=== PATIENT | male | born 1955 | race Caucasian/White ===

== ENCOUNTER 2023-02-27 15:30 | Inpatient (IN) | payer MEDICARE ==
[~2023-02-27] VITALS: Ht 175.3 cm; Wt 89.0 kg
[2023-02-27 17:02] LABS: BASOPHILS # (AUTO) 0.1 X10'3 (0-0.2); BASOPHILS % (AUTO) 1.9 % (0-1); EOSINOPHILS # (AUTO) 0.1 X10'3 (0-0.9); EOSINOPHILS % (AUTO) 2.1 % (0-6); HEMATOCRIT 35.4 % (42.0-52.0); HEMOGLOBIN 11.6 g/dl (14.0-17.9); LYMPHOCYTES # (AUTO) 0.8 X10'3 (1.1-4.8); LYMPHOCYTES % (AUTO) 13.2 % (21-51); MEAN CORPUSCULAR HEMOGLOBIN 30.7 PG (27.0-31.0); MEAN CORPUSCULAR HGB CONC 32.8 g/dL (33.0-36.5); MEAN CORPUSCULAR VOLUME 93.6 FL (78-98); MEAN PLATELET VOLUME 7.8 FL (7.4-10.4); MONOCYTES # (AUTO) 1.1 X10'3 (0-0.9); NEUTROPHILS % (AUTO) 64.8 % (42-75); PLATELET COUNT 301 X10'3 (140-440); RED BLOOD COUNT 3.78 X10'6 (4.70-6.10); RED CELL DISTRIBUTION WIDTH 15.9 % (11.5-14.5); WHITE BLOOD COUNT 6.2 X10'3 (4.5-11.0)
[2023-02-27 17:14] LABS: PROTHROMBIN TIME 10.5 SECONDS (9.0-12.0)
[2023-02-27 17:17] LABS: ALANINE AMINOTRANSFERASE 10 U/L (12-78); ALBUMIN 2.5 G/DL (3.4-5.0); ALBUMIN/GLOBULIN RATIO 0.7 (1.1-1.5); ALKALINE PHOSPHATASE 56 IU/L (46-116); ANION GAP 5 (8-16); ASPARTATE AMINO TRANSFERASE 15 U/L (10-37); BILIRUBIN,TOTAL 0.5 MG/DL (0.1-1.0); BLOOD UREA NITROGEN 29 MG/DL (7-18); BUN/CREATININE RATIO 4.8 (10.0-20.0); CALCIUM 8.7 MG/DL (8.5-10.1); CHLORIDE 95 MMOL/L (99-107); GLUCOSE 108 MG/DL (70-104); POTASSIUM 5.7 MMOL/L (3.5-5.1); SODIUM 127 MMOL/L (135-145); TOTAL CARBON DIOXIDE 27.1 MMOL/L (24-32); TOTAL PROTEIN 6.3 G/DL (6.4-8.2); eCRCL 12 ML/MIN; eGFR 9 ML/MIN
[2023-02-27 17:25] LABS: PRO BRAIN NATRIURETIC PEPTIDE 15329 PG/ML (0-125)
[2023-02-27] MEDS ORDERED: morphine 4 MG/ML inj SYRINge IV ONE (19:25)
[2023-02-27] MEDS ORDERED: HYDR-4069 PO (21:01)
[2023-02-27] MEDS ORDERED: BISM262O50 (21:01)
[2023-02-27] MEDS ORDERED: METO5TAB85 PO (21:01)
[2023-02-27] MEDS ORDERED: AMLO2.5T2 PO (21:01)
[2023-02-27] MEDS ORDERED: MEGE40TA5 PO (21:01)
[2023-02-27] MEDS ORDERED: OXYC-145 PO (21:01)
[2023-02-27] MEDS ORDERED: SERT25TA PO (21:01)
[2023-02-27] MEDS ORDERED: ASPI-1071 PO (21:01)
[2023-02-27] MEDS ORDERED: B,C/1TAB (21:01)
[2023-02-27] MEDS ORDERED: ATOR40TA PO (21:01)
[2023-02-27] MEDS ORDERED: CALC500T11 PO (21:01)
[2023-02-27] MEDS ORDERED: SYN0.088T PO (21:01)
[2023-02-27] MEDS ORDERED: LOSA-415 PO (21:01)
[2023-02-27] MEDS ORDERED: METO50TA7 PO (21:01)
[2023-02-27] MEDS ORDERED: ALB0.5UD IH (21:01)
[2023-02-27] MEDS ORDERED: SEVE800T8 PO (21:01)
[2023-02-28] MEDS ORDERED: acetaminophen 325mg tablet PO PRN ×2 (02:25)
[2023-02-28] MEDS ORDERED: magnesium hydroxide 30ml (MOM) UD suspension PO PRN (02:25)
[2023-02-28] MEDS ORDERED: normal saline 1000ml 1,000 ML IV SCH (02:25)
[2023-02-28] MEDS ORDERED: acetaminophen 650mg rectal suppository RC PRN (02:25)
[2023-02-28] MEDS ORDERED: mag hydrox/Alum hydrox/simeth 30ml oral suspension PO PRN (02:25)
[2023-02-28] MEDS ORDERED: HYDROcodone/acetaminophen 5mg/325mg tablet PO PRN (02:25)
[2023-02-28] MEDS ORDERED: ondansetron 4mg rapidly disintigrating tab PO PRN (02:25)
[2023-02-28] MEDS ORDERED: morphine 2 MG/ML inj. syringe IV PRN (02:25)
[2023-02-28] MEDS ORDERED: bisacodyl 10mg suppository rectal RC PRN (02:25)
[2023-02-28] MEDS ORDERED: ondansetron/PF 4mg/2ml inj IV PRN (02:25)
[2023-02-28] MEDS ORDERED: sodium polystyrene sulfonate 15gm/60ml oral suspension PO ONE (02:30)
[2023-02-28] MEDS ORDERED: calcium chloride 100 MG/1 ML inj IV ONE (02:30)
[2023-02-28] MEDS ORDERED: dextrose 50%-water 50ml dispensing syringe IV ONE (02:30)
[2023-02-28] MEDS ORDERED: sodium bicarbonate (8.4%) 1 mEq/ml syringe IV ONE (02:30)
[2023-02-28] MEDS ORDERED: insulin regular, human 10 units/0.1 ml syringe IV ONE (02:30)
[2023-02-28] MEDS ORDERED: CALCIUM GLUC 1gm/50ml NACL,iso 50 ML IV ONE (02:50)
[2023-02-28 03:08] LABS: HEMOGLOBIN A1C 4.5 % (4.5-6.2)
[2023-02-28 03:13] LABS: APTT 30 SECONDS (22-32); D-DIMER 2.45 MG/L FEU (0-0.50); PROTHROMBIN TIME 10.3 SECONDS (9.0-12.0)
[2023-02-28 03:24] LABS: MAGNESIUM 2.2 MG/DL (1.5-2.4); PHOSPHORUS 3.5 MG/DL (2.3-4.5); THYROID STIMULATING HORMONE 3.35 ulU/ml (0.34-4.50)
[2023-02-28] MEDS ORDERED: pantoprazole 40mg Tablet.DR PO SCH (07:30)
[2023-02-28] MEDS ORDERED: docusate sod 100mg capsule PO SCH (08:00)
[2023-02-28] MEDS ORDERED: heparin, porcine 5000 units/ml vial SQ SCH (08:00)
[2023-02-28 10:18] VITALS: BP 167/76; PULSE 86; RESP 17; TEMP 98.8; O2SAT 98
[2023-02-28] MEDS ORDERED: temazepam 15mg capsule PO PRN (21:00)
== END 2023-02-28 13:03 | disposition home or self-care (01) | DRG 640 ==
LOC: ER 15:30 → ED HOLD 02-28 02:28
PROVIDERS: ADMIT Family Medicine; ATTEND Internal Medicine
DX: E87.1 Hypo-osmolality and hyponatremia (principal); I50.33 Acute on chronic diastolic (congestive) heart failure; N18.6 End stage renal disease; I13.2 Hypertensive heart and chronic kidney disease with heart failure and with stage 5 chronic kidney disease, or end stage renal disease; N17.9 Acute kidney failure, unspecified; I16.1 Hypertensive emergency; E87.5 Hyperkalemia; S00.93XA Contusion of unspecified part of head, initial encounter; M50.322 Other cervical disc degeneration at C5-C6 level; E78.5 Hyperlipidemia, unspecified; G89.4 Chronic pain syndrome; E03.9 Hypothyroidism, unspecified; R55 Syncope and collapse; D64.9 Anemia, unspecified; J44.9 Chronic obstructive pulmonary disease, unspecified; W18.30XA Fall on same level, unspecified, initial encounter; R29.6 Repeated falls; Z79.891 Long term (current) use of opiate analgesic; Y93.89 Activity, other specified; Y92.098 Other place in other non-institutional residence as the place of occurrence of the external cause; Y99.8 Other external cause status; Z79.899 Other long term (current) drug therapy; Z79.82 Long term (current) use of aspirin; Z88.8 Allergy status to other drugs, medicaments and biological substances; Z99.2 Dependence on renal dialysis
CPT/HCPCS: 36415; 70450; 71045; 72125; 73130; 73502; 80053; 82948; 83036; 83735; 83880; 84100; 84443; 84484; 85025; 85379; 85610; 85730; 99285; G0378; J0610; J1644; J1815; J2270; J3490; J7030

== ENCOUNTER 2023-05-16 22:24 | Inpatient (IN) | payer MEDICARE, OTHER ==
[~2023-05-16] VITALS: Ht 175.3 cm; Wt 98.0 kg
[~2023-05-16 22:24] MED LIST: ASPI-1071 PO; ATOR40TA PO; HYDR25TA90 PO; LOSA-415 PO; METO50TA7 PO; SERT25TA PO; SEVE800T8 PO; SYN0.088T PO
[2023-05-16 22:41] LABS: ABG BASE EXCESS -3.2 mmol/L (-2.0-2.0); ABG HCO3 20.6 mmol/L (22.0-26.0); ABG OXYGEN SATURATION 98.9 % (94-97); ABG PCO2 (T) 31.4 mmHg (35.0-48.0); ABG PH (T) 7.434 (7.340-7.440); ABG PO2 (T) 203.9 mmHg (75.0-100.0); ALLEN'S TEST Modified; FCOHb 1.2 % (0.0-3.9); FHHb 1.1 % (0.0-5.0); FMetHb 0.3 % (0.0-1.5); FO2Hb 97.4 % (94-97); RESPIRATORY RATE 10 b/min; TOTAL HEMOGLOBIN 8.1 G/dl (14.0-17.9)
[2023-05-16 22:43] VITALS: PULSE 82; RESP 20; RESP 30; O2SAT 100
[2023-05-16] MEDS: ipratropium 0.5 MG/2.5ML nebule IH ONE (22:49)
[2023-05-16] MEDS: albuterol 2.5 MG/3 ML nebule CONTNEB PRN (22:49)
[2023-05-16 22:59] LABS: BASOPHILS # (AUTO) 0.1 X10'3 (0-0.2); HEMOGLOBIN 7.5 g/dl (14.0-17.9); LYMPHOCYTES # (AUTO) 1.6 X10'3 (1.1-4.8); NEUTROPHILS % (AUTO) 76.5 % (42-75); RED CELL DISTRIBUTION WIDTH 19.7 % (11.5-14.5)
[2023-05-16 23:00] LABS: BILIRUBIN,URINE NEGATIVE (Neg); CLARITY,URINE TURBID (Clear); COLOR,URINE STRAW (Yellow); GLUCOSE, URINE 100 mg/dl (Neg); KETONES,URINE NEGATIVE (Neg); LEUKOCYTE ESTERASE ,URINE MODERATE (Neg); NITRITES, URINE NEGATIVE (Neg); OCCULT BLOOD,URINE SMALL (Neg); PROTEIN,URINE >=300 mg/dl (Neg); UROBILINOGEN,URINE 0.2 E.U/dL (0.2-1.0)
[2023-05-16] MEDS: methylPREDNISolone sod succ 125mg/2ml vial IV ONE (23:00)
[2023-05-16 23:01] LABS: EOSINOPHILS # (AUTO) 0.5 X10'3 (0-0.9); EOSINOPHILS % (AUTO) 3.8 % (0-6); LYMPHOCYTES % (AUTO) 11.3 % (21-51); MEAN CORPUSCULAR HEMOGLOBIN 26.3 PG (27.0-31.0); MEAN CORPUSCULAR HGB CONC 31.3 g/dL (33.0-36.5); MEAN PLATELET VOLUME 6.8 FL (7.4-10.4); MONOCYTES # (AUTO) 1.1 X10'3 (0-0.9); MONOCYTES % (AUTO) 7.4 % (2-12); NEUTROPHILS # (AUTO) 10.9 X10'3 (1.8-7.7); PLATELET COUNT 650 X10'3 (140-440); RED BLOOD COUNT 2.86 X10'6 (4.70-6.10); WHITE BLOOD COUNT 14.3 X10'3 (4.5-11.0)
[2023-05-16] MEDS: nitroGLYCERIN 1gm ointment UD TP ONE (23:04)
[2023-05-16 23:06] LABS: UA COLLECTION TYPE STRAIGHT CATH
[2023-05-16 23:07] LABS: SQUAMOUS EPITHELIAL CELL,UR MODERATE /LPF (FEW)
[2023-05-16] MEDS: CefTRIAXone 2gm/D5W 50ml BAG 50 ML IV ONE (23:07)
[2023-05-16 23:08] LABS: BACTERIA,URINE 2+ /HPF (Neg); RBC,URINE 0-2 /HPF (0-2); WBC,URINE TNTC /HPF (0-4)
[2023-05-16 23:13] LABS: ALANINE AMINOTRANSFERASE 16 U/L (12-78); ALBUMIN 2.6 G/DL (3.4-5.0); ALBUMIN/GLOBULIN RATIO 0.6 (1.1-1.5); ALKALINE PHOSPHATASE 72 IU/L (46-116); ANION GAP 13 (8-16); ASPARTATE AMINO TRANSFERASE 13 U/L (10-37); BILIRUBIN,TOTAL 0.4 MG/DL (0.1-1.0); BLOOD UREA NITROGEN 83 MG/DL (7-18); BUN/CREATININE RATIO 11.8 (10.0-20.0); CALCIUM 8.8 MG/DL (8.5-10.1); CHLORIDE 99 MMOL/L (99-107); CREATININE 7.06 MG/DL (0.60-1.10); GLUCOSE 153 MG/DL (70-104); POTASSIUM 5.5 MMOL/L (3.5-5.1); PRO BRAIN NATRIURETIC PEPTIDE 20284 PG/ML (0-125); SODIUM 135 MMOL/L (135-145); TOTAL CARBON DIOXIDE 23.5 MMOL/L (24-32); TOTAL PROTEIN 7.3 G/DL (6.4-8.2); eCRCL 10 ML/MIN; eGFR 8 ML/MIN
[2023-05-16] MEDS: furosemide 10 MG/1 ML 10ml inj IV ONE (23:18)
[2023-05-16] MEDS: azithromycin/NS 500mg/250ml 250 ML IV ONE (23:21)
[2023-05-16 23:47] VITALS: PULSE 83; RESP 17; O2SAT 100
[2023-05-16 23:53] LABS: ANISOCYTOSIS 2+; PLATELET ESTIMATE INCREASED; TOTAL CELLS COUNTED 100
[2023-05-16 23:59] LABS: ELLIPTOCYTES 1+; SCHISTOCYTES FEW
[2023-05-17] VITALS (18 sets, daily range): BP systolic 162–183; BP diastolic 69–95; PULSE 86–108; RESP 14–20; TEMP 97.3–98; O2SAT 92–100
[2023-05-17] LABS: HYPOCHROMASIA 1+; POIKILOCYTOSIS 1+
[2023-05-17] MEDS ORDERED: iohexol 350MG/ML 100ml bottle IV ONE (02:22)
[2023-05-17] MEDS ORDERED: AMLO10TA13 (04:39)
[2023-05-17] MEDS ORDERED: ACET325T55 PO (04:39)
[2023-05-17] MEDS ORDERED: METO5TAB98 PO (04:39)
[2023-05-17] MEDS ORDERED: DOCU100C40 PO (04:39)
[2023-05-17] MEDS ORDERED: MEGE20TA3 PO (04:44)
[2023-05-17] MEDS ORDERED: CALC-336 PO (04:44)
[2023-05-17] MEDS ORDERED: HYDR-3972 PO (04:44)
[2023-05-17] MEDS ORDERED: HYDR-3965 PO (04:44)
[2023-05-17] MEDS ORDERED: B,C/1TAB (04:44)
[2023-05-17] MEDS ORDERED: ondansetron/PF 4mg/2ml inj IV PRN (04:55)
[2023-05-17] MEDS ORDERED: mag hydrox/Alum hydrox/simeth 30ml oral suspension PO PRN (04:55)
[2023-05-17] MEDS ORDERED: magnesium Cl slow-release 64mg tablet PO PRN (04:55)
[2023-05-17] MEDS ORDERED: potassium Cl 20 mEq SR tablet PO PRN ×2 (04:55)
[2023-05-17] MEDS ORDERED: potassium Cl 40MEQ/1/2NS 520ml 520 ML IV PRN (04:55)
[2023-05-17] MEDS ORDERED: magnesium hydroxide 30ml (MOM) UD suspension PO PRN (04:55)
[2023-05-17] MEDS ORDERED: magnesium 4gm in 100ml NS 100 ML IV PRN (04:55)
[2023-05-17] MEDS ORDERED: acetaminophen 325mg tablet PO PRN ×2 (04:55→17:00)
[2023-05-17] MEDS: bisacodyl 10mg suppository rectal RC STA (06:04)
[2023-05-17] MEDS ORDERED: normal saline 1000ml 250 ML IV PRN (06:50)
[2023-05-17] MEDS: ipratropium/albuterol 3ml nebule NEB SCH (07:04)
[2023-05-17] MEDS: heparin, porcine 5000 units/ml vial SQ SCH (08:00)
[2023-05-17] MEDS: lansoprazole 15mg solutab NG SCH (08:00)
[2023-05-17 08:21] LABS: HEMATOCRIT 23.5 % (42.0-52.0); HEMOGLOBIN 7.5 g/dl (14.0-17.9); MEAN CORPUSCULAR HEMOGLOBIN 26.7 PG (27.0-31.0); MEAN CORPUSCULAR HGB CONC 31.9 g/dL (33.0-36.5); MEAN CORPUSCULAR VOLUME 83.9 FL (78-98); MEAN PLATELET VOLUME 7.3 FL (7.4-10.4); PLATELET COUNT 523 X10'3 (140-440); RED CELL DISTRIBUTION WIDTH 19.1 % (11.5-14.5); WHITE BLOOD COUNT 5.1 X10'3 (4.5-11.0)
[2023-05-17] MEDS: docusate sod 100mg capsule PO SCH (08:29)
[2023-05-17] MEDS: methylPREDNISolone sod succ/PF 40mg inj. IV SCH (08:29)
[2023-05-17 09:23] LABS: % IRON SATURATION 8 % (11-46); IRON 20 UG/DL (53-167); TOTAL IRON BINDING CAPACITY 248 UG/DL (259-388)
[2023-05-17] MEDS ORDERED: LEVO88TA7 PO (09:40)
[2023-05-17] MEDS ORDERED: HYDR50TA46 PO (09:40)
[2023-05-17] MEDS ORDERED: SERT-433 PO (09:40)
[2023-05-17] MEDS ORDERED: METO-384 PO (09:40)
[2023-05-17] MEDS: heparin 1,000 units/ml 10ml inj IV ONE (12:05)
[2023-05-17] MEDS: EPOETIN ALFA-EPBX 20,000 UNIT/ML 1 ML MDV IV ONE (12:13)
[2023-05-17] MEDS: losartan 25mg tablet PO SCH (17:00)
[2023-05-17] MEDS: metoprolol succinate 25mg (24-HOUR) SR. Tablet PO ONE (17:23)
[2023-05-17] MEDS: losartan 25mg tablet PO ONE (17:23)
[2023-05-17] MEDS: megestrol acetate 20mg tablet PO SCH (21:40)
[2023-05-17] MEDS: calcium carbonate 500mg tablet PO SCH (21:42)
[2023-05-17] MEDS: atorvastatin 20mg tablet PO SCH (21:42)
[2023-05-17] MEDS: azithromycin/NS 500mg/250ml 250 ML IV SCH (22:12)
[2023-05-17] MEDS: CefTRIAXone/D5W-Rocephin 1gm 50 ML IV SCH (23:17)
[2023-05-17] MEDS: sevelamer carbonate 800mg tablet PO SCH (23:35)
[2023-05-18] VITALS (19 sets, daily range): BP systolic 144–181; BP diastolic 71–96; PULSE 74–110; RESP 14–28; TEMP 97.3–98.9; O2SAT 90–100
[2023-05-18] MEDS: HYDROcodone/acetaminophen 5mg/325mg tablet PO PRN (01:01)
[2023-05-18] MEDS: levoTHYROXINE 88mcg tablet PO SCH (06:54)
[2023-05-18] MEDS: HYDROcodone/acetaminophen 10/325mg tab PO PRN (07:01)
[2023-05-18 07:15] LABS: ANION GAP 14 (8-16); BLOOD UREA NITROGEN 51 MG/DL (7-18); BUN/CREATININE RATIO 10.2 (10.0-20.0); CALCIUM 8.7 MG/DL (8.5-10.1); CHLORIDE 98 MMOL/L (99-107); GLUCOSE 229 MG/DL (70-104); POTASSIUM 5.8 MMOL/L (3.5-5.1); SODIUM 135 MMOL/L (135-145); TOTAL CARBON DIOXIDE 23.3 MMOL/L (24-32); eCRCL 15 ML/MIN; eGFR 12 ML/MIN
[2023-05-18 08:05] LABS: HEMOGLOBIN A1C 4.9 % (4.5-6.2)
[2023-05-18 08:54] LABS: FERRITIN 678 NG/ML (26-388)
[2023-05-18] MEDS: sertraline 50mg tablet PO SCH (09:19)
[2023-05-18] MEDS: aspirin 81mg, enteric-coated 1 TAB TABLET.DR PO SCH (09:19)
[2023-05-18] MEDS: amLODIPine 5mg tablet PO SCH (09:20)
[2023-05-18] MEDS: metoprolol succinate 25mg (24-HOUR) SR. Tablet PO SCH (09:21)
[2023-05-18 09:42] LABS: WHITE BLOOD COUNT 12.5 X10'3 (4.5-11.0)
[2023-05-18 09:43] LABS: BASOPHILS % (AUTO) 0.3 % (0-1); EOSINOPHILS % (AUTO) 0 % (0-6); HEMATOCRIT 23.2 % (42.0-52.0); HEMOGLOBIN 7.5 g/dl (14.0-17.9); LYMPHOCYTES # (AUTO) 0.4 X10'3 (1.1-4.8); LYMPHOCYTES % (AUTO) 2.9 % (21-51); MEAN CORPUSCULAR HEMOGLOBIN 26.9 PG (27.0-31.0); MEAN CORPUSCULAR HGB CONC 32.2 g/dL (33.0-36.5); MEAN CORPUSCULAR VOLUME 83.6 FL (78-98); MEAN PLATELET VOLUME 6.7 FL (7.4-10.4); MONOCYTES # (AUTO) 0.6 X10'3 (0-0.9); MONOCYTES % (AUTO) 5.1 % (2-12); NEUTROPHILS # (AUTO) 11.4 X10'3 (1.8-7.7); NEUTROPHILS % (AUTO) 91.7 % (42-75); PLATELET COUNT 650 X10'3 (140-440); RED BLOOD COUNT 2.78 X10'6 (4.70-6.10); RED CELL DISTRIBUTION WIDTH 19.3 % (11.5-14.5)
[2023-05-18 10:08] LABS: ANISOCYTOSIS 2+; PLATELET ESTIMATE INCREASED
[2023-05-18 10:09] LABS: SCHISTOCYTES FEW
[2023-05-18 10:10] LABS: HYPOCHROMASIA 1+; MICROCYTOSIS 1+; TEAR DROP CELLS FEW
[2023-05-18 10:11] LABS: ROULEAUX 1+
[2023-05-18] MEDS: sodium polystyrene sulfonate 15gm/60ml oral suspension PO ONE ×2 (10:23→21:18)
[2023-05-18] MEDS: insulin regular, human 10 units/0.1 ml syringe IV ONE ×2 (10:38→21:23)
[2023-05-18] MEDS: dextrose 50%-water 50ml dispensing syringe IV ONE ×2 (10:38→21:18)
[2023-05-18] MEDS: LIDOcaine 1% (10mg/ml) 2ml vial SQ ONE (10:39)
[2023-05-18 11:57] LABS: ABG BASE EXCESS -3.2 mmol/L (-2.0-2.0); ABG HCO3 21.5 mmol/L (22.0-26.0); ABG OXYGEN SATURATION 97.5 % (94-97); ABG PCO2 (T) 36.6 mmHg (35.0-48.0); ABG PH (T) 7.386 (7.340-7.440); ALLEN'S TEST POSITIVE; FCOHb 1.9 % (0.0-3.9); FHHb 2.4 % (0.0-5.0); FLOW 4 L/min; FMetHb 0.2 % (0.0-1.5); FO2Hb 95.5 % (94-97); MODE NASAL CANNULA; PATIENT TEMPERATURE 36.9; RESPIRATORY RATE 24 b/min; TOTAL HEMOGLOBIN 7.2 G/dl (14.0-17.9)
[2023-05-18] MEDS: losartan 25mg tablet PO ONE (11:57)
[2023-05-18] MEDS ORDERED: albuterol 2.5 MG/3 ML nebule NEB PRN (12:10)
[2023-05-18] MEDS: morphine 2 MG/ML inj. syringe IV PRN (13:23)
[2023-05-18] MEDS ORDERED: albuterol 60 PUFF/8GM Inhaler (90mcg/1 puff) IH PRN (14:28)
[2023-05-18] MEDS: REMDESIVIR INJ (loading dose) 200 MG in normal saline 100ml IV soln 100 ML IV ONE (15:22)
[2023-05-18 20:12] LABS: ANION GAP 15 (8-16); BLOOD UREA NITROGEN 64 MG/DL (7-18); BUN/CREATININE RATIO 11.2 (10.0-20.0); CALCIUM 8.9 MG/DL (8.5-10.1); CHLORIDE 98 MMOL/L (99-107); GLUCOSE 206 MG/DL (70-104); SODIUM 136 MMOL/L (135-145); TOTAL CARBON DIOXIDE 23.4 MMOL/L (24-32); eCRCL 13 ML/MIN; eGFR 10 ML/MIN
[2023-05-18] MEDS: albuterol 2.5 MG/3 ML nebule CONTNEB PRN (21:19)
[2023-05-18] MEDS: heparin 10,000 units/1 ML INJ IV ONE (23:46)
[2023-05-18] MEDS: heparin 25,000 UNIT/250ml bag 250 ML IV PRN (23:48)
[2023-05-19] VITALS (22 sets, daily range): BP systolic 139–195; BP diastolic 71–110; PULSE 78–104; RESP 10–24; TEMP 96.4–98.9; O2SAT 97–100
[2023-05-19 03:03] LABS: BASOPHILS % (AUTO) 0.2 % (0-1); EOSINOPHILS % (AUTO) 0 % (0-6); LYMPHOCYTES # (AUTO) 0.4 X10'3 (1.1-4.8); LYMPHOCYTES % (AUTO) 4.2 % (21-51); MEAN CORPUSCULAR HEMOGLOBIN 26.1 PG (27.0-31.0); MEAN CORPUSCULAR HGB CONC 31.2 g/dL (33.0-36.5); MEAN CORPUSCULAR VOLUME 83.5 FL (78-98); MEAN PLATELET VOLUME 8.2 FL (7.4-10.4); MONOCYTES # (AUTO) 0.3 X10'3 (0-0.9); MONOCYTES % (AUTO) 3.6 % (2-12); NEUTROPHILS # (AUTO) 8.2 X10'3 (1.8-7.7); PLATELET COUNT 341 X10'3 (140-440); RED BLOOD COUNT 2.57 X10'6 (4.70-6.10); RED CELL DISTRIBUTION WIDTH 18.7 % (11.5-14.5); WHITE BLOOD COUNT 8.9 X10'3 (4.5-11.0)
[2023-05-19 03:23] LABS: HEMATOCRIT 21.4 % (42.0-52.0); HEMOGLOBIN 6.7 g/dl (14.0-17.9)
[2023-05-19 03:37] LABS: ALBUMIN 2.6 G/DL (3.4-5.0); ANION GAP 13 (8-16); BLOOD UREA NITROGEN 66 MG/DL (7-18); BUN/CREATININE RATIO 11.2 (10.0-20.0); C-REACTIVE PROTEIN 2.17 MG/DL (0.0-0.5); CALCIUM 8.3 MG/DL (8.5-10.1); CHLORIDE 100 MMOL/L (99-107); CREATININE 5.88 MG/DL (0.60-1.10); GLUCOSE 195 MG/DL (70-104); SODIUM 138 MMOL/L (135-145); TOTAL CARBON DIOXIDE 25.1 MMOL/L (24-32); eCRCL 12 ML/MIN; eGFR 10 ML/MIN
[2023-05-19 03:55] LABS: LACTATE DEHYDROGENASE 261 U/L (85-227)
[2023-05-19 04:01] LABS: POTASSIUM 6.4 MMOL/L (3.5-5.1)
[2023-05-19 04:02] LABS: ANISOCYTOSIS 2+; PLATELET ESTIMATE NORMAL
[2023-05-19 04:03] LABS: HYPOCHROMASIA 1+; POLYCHROMASIA FEW; SCHISTOCYTES FEW
[2023-05-19 04:04] LABS: MICROCYTOSIS 1+; TEAR DROP CELLS FEW
[2023-05-19] MEDS: SODIUM ZIRCONIUM CYCLOSILICATE 10 GM POWD.PACK PO SCH ×2 (04:43→13:04)
[2023-05-19] MEDS ORDERED: normal saline 1000ml 250 ML IV PRN (07:00)
[2023-05-19 07:34] LABS: D-DIMER 4.11 MG/L FEU (0-0.50)
[2023-05-19] MEDS: losartan 25mg tablet PO SCH (07:38)
[2023-05-19] MEDS: metoprolol succinate 25mg (24-HOUR) SR. Tablet PO SCH (07:39)
[2023-05-19] MEDS: LIDOcaine 1% (10mg/ml) 2ml vial SQ ONE (07:55)
[2023-05-19] MEDS: heparin 1,000 units/ml 10ml inj IV ONE (09:30)
[2023-05-19] MEDS ORDERED: CALCIUM GLUC 1gm/50ml NACL,iso 50 ML IV PRN (09:35)
[2023-05-19] MEDS ORDERED: albuterol 2.5 MG/3 ML nebule NEB ONE (09:35)
[2023-05-19] MEDS: EPOETIN ALFA-EPBX 20,000 UNIT/ML 1 ML MDV IV ONE (09:51)
[2023-05-19 10:04] LABS: HBSAG SCREEN Negative (Negative)
[2023-05-19] MEDS: pantoprazole 40 MG vial IV SCH (13:02)
[2023-05-19] MEDS: REMDESIVIR 100MG/NS 100ML ADV 100 ML IV SCH (13:03)
[2023-05-19] MEDS: FERROUS SULFATE 142 MG TABLET.ER (45mg elemental) PO SCH (13:03)
[2023-05-19] MEDS: losartan 50mg tablet PO ONE (14:20)
[2023-05-19] MEDS: amLODIPine 5mg tablet PO ONE (14:20)
[2023-05-19] MEDS: metoprolol succinate 25mg (24-HOUR) SR. Tablet PO ONE (14:21)
[2023-05-19] MEDS: dextrose 50%-water 50ml dispensing syringe IV ONE (14:22)
[2023-05-19] MEDS: insulin regular, human 10 units/0.1 ml syringe IV ONE (14:36)
[2023-05-19 20:58] LABS: HEMATOCRIT 23.5 % (42.0-52.0); HEMOGLOBIN 7.8 g/dl (14.0-17.9); MEAN CORPUSCULAR HEMOGLOBIN 27.8 PG (27.0-31.0); MEAN CORPUSCULAR HGB CONC 33.1 g/dL (33.0-36.5); MEAN PLATELET VOLUME 7.2 FL (7.4-10.4); PLATELET COUNT 445 X10'3 (140-440); RED BLOOD COUNT 2.79 X10'6 (4.70-6.10); RED CELL DISTRIBUTION WIDTH 17.8 % (11.5-14.5); WHITE BLOOD COUNT 9.3 X10'3 (4.5-11.0)
[2023-05-20] VITALS (10 sets, daily range): BP systolic 122–164; BP diastolic 54–75; PULSE 66–90; RESP 10–20; TEMP 98–99; O2SAT 99–100
[2023-05-20 06:09] LABS: MEAN PLATELET VOLUME 7.5 FL (7.4-10.4); RED CELL DISTRIBUTION WIDTH 17.8 % (11.5-14.5)
[2023-05-20 06:13] LABS: BASOPHILS % (AUTO) 0.3 % (0-1); EOSINOPHILS % (AUTO) 0 % (0-6); HEMATOCRIT 23.8 % (42.0-52.0); HEMOGLOBIN 7.9 g/dl (14.0-17.9); LYMPHOCYTES # (AUTO) 0.6 X10'3 (1.1-4.8); LYMPHOCYTES % (AUTO) 6.9 % (21-51); MEAN CORPUSCULAR HEMOGLOBIN 27.8 PG (27.0-31.0); MEAN CORPUSCULAR HGB CONC 33.1 g/dL (33.0-36.5); MEAN CORPUSCULAR VOLUME 84.1 FL (78-98); MONOCYTES # (AUTO) 0.4 X10'3 (0-0.9); MONOCYTES % (AUTO) 4.8 % (2-12); NEUTROPHILS # (AUTO) 7.8 X10'3 (1.8-7.7); PLATELET COUNT 438 X10'3 (140-440); RED BLOOD COUNT 2.83 X10'6 (4.70-6.10); WHITE BLOOD COUNT 8.9 X10'3 (4.5-11.0)
[2023-05-20 06:24] LABS: ALBUMIN 2.7 G/DL (3.4-5.0); ANION GAP 12 (8-16); BLOOD UREA NITROGEN 44 MG/DL (7-18); BUN/CREATININE RATIO 9.4 (10.0-20.0); C-REACTIVE PROTEIN 1.55 MG/DL (0.0-0.5); CALCIUM 8.2 MG/DL (8.5-10.1); CHLORIDE 100 MMOL/L (99-107); CREATININE 4.69 MG/DL (0.60-1.10); GLUCOSE 215 MG/DL (70-104); POTASSIUM 4.2 MMOL/L (3.5-5.1); SODIUM 138 MMOL/L (135-145); TOTAL CARBON DIOXIDE 26.3 MMOL/L (24-32); eCRCL 15 ML/MIN; eGFR 13 ML/MIN
[2023-05-20 06:37] LABS: D-DIMER 4.06 MG/L FEU (0-0.50)
[2023-05-20] MEDS: piperacillin/tazo 3.375gm/50ml 50 ML IV SCH (08:48)
[2023-05-20] MEDS: azithromycin 250mg tablet PO SCH (08:49)
[2023-05-20] MEDS: sevelamer carbonate 800mg tablet PO SCH (08:50)
[2023-05-20] MEDS: furosemide 40mg/4ml inj IV ONE (11:11)
[2023-05-20 18:03] LABS: APTT 44 SECONDS (22-32)
[2023-05-20] MEDS: CefTRIAXone/D5W-Rocephin 1gm 50 ML IV SCH (20:34)
[2023-05-21] VITALS (17 sets, daily range): BP systolic 145–184; BP diastolic 41–82; PULSE 63–77; RESP 15–20; TEMP 97.6–98.7; O2SAT 93–100
[2023-05-21] MEDS: heparin 10,000 units/1 ML INJ IV PRN (01:28)
[2023-05-21] MEDS: carVEDilol 12.5mg tablet PO SCH (09:03)
[2023-05-21 09:12] LABS: BASOPHILS # (AUTO) 0.1 X10'3 (0-0.2); BASOPHILS % (AUTO) 0.7 % (0-1); EOSINOPHILS % (AUTO) 0 % (0-6); HEMATOCRIT 24.5 % (42.0-52.0); HEMOGLOBIN 7.9 g/dl (14.0-17.9); LYMPHOCYTES # (AUTO) 0.8 X10'3 (1.1-4.8); LYMPHOCYTES % (AUTO) 8.7 % (21-51); MEAN CORPUSCULAR HEMOGLOBIN 27.4 PG (27.0-31.0); MEAN CORPUSCULAR HGB CONC 32.1 g/dL (33.0-36.5); MEAN CORPUSCULAR VOLUME 85.3 FL (78-98); MEAN PLATELET VOLUME 7.6 FL (7.4-10.4); MONOCYTES # (AUTO) 0.6 X10'3 (0-0.9); MONOCYTES % (AUTO) 7.2 % (2-12); NEUTROPHILS # (AUTO) 7.5 X10'3 (1.8-7.7); NEUTROPHILS % (AUTO) 83.4 % (42-75); PLATELET COUNT 440 X10'3 (140-440); RED BLOOD COUNT 2.87 X10'6 (4.70-6.10); RED CELL DISTRIBUTION WIDTH 18.1 % (11.5-14.5)
[2023-05-21 09:24] LABS: ALBUMIN 2.7 G/DL (3.4-5.0); ANION GAP 11 (8-16); BLOOD UREA NITROGEN 67 MG/DL (7-18); BUN/CREATININE RATIO 10.6 (10.0-20.0); CALCIUM 8.3 MG/DL (8.5-10.1); CHLORIDE 97 MMOL/L (99-107); CREATININE 6.35 MG/DL (0.60-1.10); GLUCOSE 221 MG/DL (70-104); POTASSIUM 4.6 MMOL/L (3.5-5.1); SODIUM 135 MMOL/L (135-145); TOTAL CARBON DIOXIDE 27.3 MMOL/L (24-32); eCRCL 11 ML/MIN; eGFR 9 ML/MIN
[2023-05-21 13:29] LABS: BASOPHILS % (AUTO) 0.1 % (0-1); EOSINOPHILS % (AUTO) 0 % (0-6); HEMATOCRIT 23.3 % (42.0-52.0); HEMOGLOBIN 7.5 g/dl (14.0-17.9); LYMPHOCYTES # (AUTO) 0.3 X10'3 (1.1-4.8); LYMPHOCYTES % (AUTO) 3.5 % (21-51); MEAN CORPUSCULAR HEMOGLOBIN 27.3 PG (27.0-31.0); MEAN CORPUSCULAR HGB CONC 32.3 g/dL (33.0-36.5); MEAN CORPUSCULAR VOLUME 84.3 FL (78-98); MEAN PLATELET VOLUME 8.1 FL (7.4-10.4); MONOCYTES # (AUTO) 0.3 X10'3 (0-0.9); MONOCYTES % (AUTO) 2.6 % (2-12); NEUTROPHILS # (AUTO) 9.2 X10'3 (1.8-7.7); NEUTROPHILS % (AUTO) 93.8 % (42-75); PLATELET COUNT 417 X10'3 (140-440); RED BLOOD COUNT 2.77 X10'6 (4.70-6.10); RED CELL DISTRIBUTION WIDTH 18.1 % (11.5-14.5); WHITE BLOOD COUNT 9.8 X10'3 (4.5-11.0)
[2023-05-21 13:42] LABS: ALANINE AMINOTRANSFERASE 13 U/L (12-78); ALBUMIN 2.6 G/DL (3.4-5.0); ALBUMIN/GLOBULIN RATIO 0.7 (1.1-1.5); ALKALINE PHOSPHATASE 46 IU/L (46-116); ANION GAP 13 (8-16); ASPARTATE AMINO TRANSFERASE 7 U/L (10-37); BILIRUBIN,TOTAL 0.3 MG/DL (0.1-1.0); BLOOD UREA NITROGEN 70 MG/DL (7-18); BUN/CREATININE RATIO 10.6 (10.0-20.0); CALCIUM 8.1 MG/DL (8.5-10.1); CHLORIDE 97 MMOL/L (99-107); CREATININE 6.59 MG/DL (0.60-1.10); GLUCOSE 253 MG/DL (70-104); POTASSIUM 4.9 MMOL/L (3.5-5.1); SODIUM 135 MMOL/L (135-145); TOTAL CARBON DIOXIDE 24.8 MMOL/L (24-32); TOTAL PROTEIN 6.1 G/DL (6.4-8.2); eCRCL 11 ML/MIN; eGFR 8 ML/MIN
[2023-05-21] MEDS: EPOETIN ALFA-EPBX 20,000 UNIT/ML 1 ML MDV IV ONE (13:44)
[2023-05-21] MEDS ORDERED: EPOETIN ALFA-EPBX 20,000 UNIT/ML 1 ML MDV IV ONE (14:10)
[2023-05-21] MEDS: iron sucrose complex injection 200 MG in normal saline 100ml IV soln 100 ML IV ONE (16:21)
[2023-05-21 20:13] LABS: OCCULT BLOOD STOOL NEGATIVE (Neg)
[2023-05-21] MEDS: pantoprazole 40mg Tablet.DR PO SCH (21:12)
[2023-05-22] VITALS (15 sets, daily range): BP systolic 156–168; BP diastolic 51–87; PULSE 60–79; RESP 15–25; TEMP 96.8–98.3; O2SAT 95–100
[2023-05-22 07:26] LABS: ALBUMIN 2.7 G/DL (3.4-5.0); ANION GAP 12 (8-16); BASOPHILS % (AUTO) 0.1 % (0-1); BLOOD UREA NITROGEN 47 MG/DL (7-18); BUN/CREATININE RATIO 9.4 (10.0-20.0); CALCIUM 8.3 MG/DL (8.5-10.1); CHLORIDE 100 MMOL/L (99-107); EOSINOPHILS % (AUTO) 0.2 % (0-6); GLUCOSE 167 MG/DL (70-104); HEMATOCRIT 25.4 % (42.0-52.0); HEMOGLOBIN 8.2 g/dl (14.0-17.9); LYMPHOCYTES # (AUTO) 0.9 X10'3 (1.1-4.8); LYMPHOCYTES % (AUTO) 9.9 % (21-51); MEAN CORPUSCULAR HEMOGLOBIN 27.5 PG (27.0-31.0); MEAN CORPUSCULAR HGB CONC 32.2 g/dL (33.0-36.5); MEAN CORPUSCULAR VOLUME 85.4 FL (78-98); MEAN PLATELET VOLUME 7.8 FL (7.4-10.4); MONOCYTES # (AUTO) 0.8 X10'3 (0-0.9); MONOCYTES % (AUTO) 8.8 % (2-12); NEUTROPHILS # (AUTO) 7.3 X10'3 (1.8-7.7); PLATELET COUNT 447 X10'3 (140-440); POTASSIUM 3.8 MMOL/L (3.5-5.1); RED BLOOD COUNT 2.98 X10'6 (4.70-6.10); RED CELL DISTRIBUTION WIDTH 18.1 % (11.5-14.5); SODIUM 139 MMOL/L (135-145); TOTAL CARBON DIOXIDE 27.3 MMOL/L (24-32); WHITE BLOOD COUNT 9.1 X10'3 (4.5-11.0); eCRCL 15 ML/MIN; eGFR 12 ML/MIN
[2023-05-22] MEDS: methylPREDNISolone sod succ/PF 40mg inj. IV SCH (08:38)
[2023-05-22] MEDS: heparin, porcine 5000 units/ml vial SQ SCH (16:40)
[2023-05-23 04:27] VITALS: PULSE 60; RESP 20; O2SAT 100
[2023-05-23 06:00] VITALS: BP 171/75; PULSE 61; RESP 18; TEMP 98.5; O2SAT 99
[2023-05-23 07:48] LABS: MAGNESIUM 2.2 MG/DL (1.5-2.4); PHOSPHORUS 5.6 MG/DL (2.3-4.5)
[2023-05-23 09:00] VITALS: RESP 20; O2SAT 96
[2023-05-23 09:34] LABS: ALANINE AMINOTRANSFERASE 12 U/L (12-78); ALBUMIN 2.8 G/DL (3.4-5.0); ALBUMIN/GLOBULIN RATIO 0.8 (1.1-1.5); ALKALINE PHOSPHATASE 55 IU/L (46-116); ANION GAP 17 (8-16); ASPARTATE AMINO TRANSFERASE 10 U/L (10-37); BILIRUBIN,TOTAL 0.4 MG/DL (0.1-1.0); BLOOD UREA NITROGEN 62 MG/DL (7-18); BUN/CREATININE RATIO 9.8 (10.0-20.0); CALCIUM 8.5 MG/DL (8.5-10.1); CHLORIDE 98 MMOL/L (99-107); CREATININE 6.33 MG/DL (0.60-1.10); GLUCOSE 171 MG/DL (70-104); POTASSIUM 4.1 MMOL/L (3.5-5.1); SODIUM 138 MMOL/L (135-145); TOTAL CARBON DIOXIDE 23.2 MMOL/L (24-32); TOTAL PROTEIN 6.3 G/DL (6.4-8.2); eCRCL 11 ML/MIN; eGFR 9 ML/MIN
[2023-05-23 10:00] VITALS: BP 159/79; PULSE 69; RESP 18; TEMP 98.1; O2SAT 97
[2023-05-23] MEDS: loperamide 2mg capsule PO ONE (13:00)
[2023-05-23 15:45] VITALS: PULSE 66; RESP 17; O2SAT 97
[2023-05-24] MEDS ORDERED: heparin 1,000 units/ml 10ml inj IV ONE (08:00)
[2023-05-24] MEDS ORDERED: EPOETIN ALFA-EPBX 20,000 UNIT/ML 1 ML MDV IV ONE (08:00)
[2023-05-24] MEDS ORDERED: heparin 1,000unit/ml 10ml vial 10 ML IV ONE (08:00)
[2023-05-24] MEDS ORDERED: albumin (human) 25% 100ml IV 100 ML IV PRN (08:00)
== END 2023-05-23 18:00 | DRG 177 ==
LOC: ER 22:25 → ED HOLD 05-17 04:55 → PCU 3S 05-17 09:40 → ORTHO 4S 05-18 17:56
PROVIDERS: ADMIT Internal Medicine; ATTEND Internal Medicine
PROC: 5A09357 Assistance with Respiratory Ventilation, Less than 24 Consecutive Hours, Continuous Positive Airway Pressure (ICD-10-PCS; 2023-05-16)
PROC: 5A1D70Z Performance of Urinary Filtration, Intermittent, Less than 6 Hours Per Day (ICD-10-PCS; principal; 2023-05-17)
PROC: B32T1ZZ Computerized Tomography (CT Scan) of Left Pulmonary Artery using Low Osmolar Contrast (ICD-10-PCS; 2023-05-17)
PROC: B3201ZZ Computerized Tomography (CT Scan) of Thoracic Aorta using Low Osmolar Contrast (ICD-10-PCS; 2023-05-17)
PROC: B32S1ZZ Computerized Tomography (CT Scan) of Right Pulmonary Artery using Low Osmolar Contrast (ICD-10-PCS; 2023-05-17)
PROC: 5A09357 Assistance with Respiratory Ventilation, Less than 24 Consecutive Hours, Continuous Positive Airway Pressure (ICD-10-PCS; 2023-05-18)
PROC: XW033E5 Introduction of Remdesivir Anti-infective into Peripheral Vein, Percutaneous Approach, New Technology Group 5 (ICD-10-PCS; 2023-05-18)
PROC: 5A1D70Z Performance of Urinary Filtration, Intermittent, Less than 6 Hours Per Day (ICD-10-PCS; 2023-05-19)
PROC: 30233N1 Transfusion of Nonautologous Red Blood Cells into Peripheral Vein, Percutaneous Approach (ICD-10-PCS; 2023-05-19)
PROC: 5A09357 Assistance with Respiratory Ventilation, Less than 24 Consecutive Hours, Continuous Positive Airway Pressure (ICD-10-PCS; 2023-05-19)
PROC: 5A09357 Assistance with Respiratory Ventilation, Less than 24 Consecutive Hours, Continuous Positive Airway Pressure (ICD-10-PCS; 2023-05-20)
PROC: 5A1D70Z Performance of Urinary Filtration, Intermittent, Less than 6 Hours Per Day (ICD-10-PCS; 2023-05-21)
PROC: 5A09357 Assistance with Respiratory Ventilation, Less than 24 Consecutive Hours, Continuous Positive Airway Pressure (ICD-10-PCS; 2023-05-21)
PROC: 5A09357 Assistance with Respiratory Ventilation, Less than 24 Consecutive Hours, Continuous Positive Airway Pressure (ICD-10-PCS; 2023-05-22)
DX: U07.1 COVID-19 (principal); J12.82 Pneumonia due to coronavirus disease 2019; N18.6 End stage renal disease; J96.21 Acute and chronic respiratory failure with hypoxia; I50.32 Chronic diastolic (congestive) heart failure; R65.10 Systemic inflammatory response syndrome (SIRS) of non-infectious origin without acute organ dysfunction; J44.0 Chronic obstructive pulmonary disease with (acute) lower respiratory infection; N39.0 Urinary tract infection, site not specified; I13.2 Hypertensive heart and chronic kidney disease with heart failure and with stage 5 chronic kidney disease, or end stage renal disease; G89.4 Chronic pain syndrome; E66.01 Morbid (severe) obesity due to excess calories; I25.10 Atherosclerotic heart disease of native coronary artery without angina pectoris; E11.22 Type 2 diabetes mellitus with diabetic chronic kidney disease; M25.552 Pain in left hip; D63.8 Anemia in other chronic diseases classified elsewhere; E87.5 Hyperkalemia; Z83.3 Family history of diabetes mellitus; Z99.2 Dependence on renal dialysis; I25.2 Old myocardial infarction; Z82.49 Family history of ischemic heart disease and other diseases of the circulatory system; Z80.9 Family history of malignant neoplasm, unspecified; Z68.31 Body mass index [BMI] 31.0-31.9, adult; Z88.8 Allergy status to other drugs, medicaments and biological substances; Z79.899 Other long term (current) drug therapy; Z79.82 Long term (current) use of aspirin; Z87.440 Personal history of urinary (tract) infections; Z87.01 Personal history of pneumonia (recurrent)
CPT/HCPCS: 36415; 36430; 36600; 71045; 71275; 80048; 80053; 81001; 82272; 82728; 82803; 82948; 83036; 83540; 83550; 83605; 83615; 83735; 83880; 84100; 84132; 84145; 84484; 85007; 85008; 85018; 85025; 85027; 85379; 85730; 86140; 86885; 86900; 86901; 86920; 87040; 87081; 87088; 87340; 87502; 87503; 87634; 87811; 93005; 94640; 94660; 94760; 96374; 96375; 97161; 97530; 99285; A4615; A4620; A6213; A6234; A6449; A7015; C9113; E1594; G0257; G0378; J0456; J0696; J1644; J1756; J1815; J1940; J2270; J2543; J2920; J2930; J3490; J7030; J7040; J8597; P9016; Q4081; Q9967

== ENCOUNTER 2023-06-20 07:38 | Inpatient (IN) | payer MEDICARE, OTHER ==
[~2023-06-20] VITALS: Ht 175.3 cm; Wt 80.8 kg
[2023-06-20] VITALS (16 sets, daily range): BP systolic 131–186; BP diastolic 68–105; PULSE 77–97; RESP 16–22; TEMP 97.6–98.6; O2SAT 94–99
[~2023-06-20 07:38] MED LIST changes: +ACET325T55 PO; +AMLO10TA13 PO; +B,C/1TAB; +CALC-336 PO; +DOCU100C40 PO; +HYDR-3965 PO; +HYDR-3972 PO; -HYDR25TA90 PO; +HYDR50TA46 PO; +MEGE20TA3 PO; +METO5TAB98 PO; +SERT-433 PO; -SERT25TA PO
[2023-06-20] MEDS: azithromycin/NS 500mg/250ml 250 ML IV ONE (08:10)
[2023-06-20 08:13] LABS: BASOPHILS # (AUTO) 0.1 X10'3 (0-0.2); BASOPHILS % (AUTO) 0.3 % (0-1); EOSINOPHILS % (AUTO) 0 % (0-6); HEMATOCRIT 36.2 % (42.0-52.0); HEMOGLOBIN 11.4 g/dl (14.0-17.9); LYMPHOCYTES # (AUTO) 0.2 X10'3 (1.1-4.8); LYMPHOCYTES % (AUTO) 1.4 % (21-51); MEAN CORPUSCULAR HEMOGLOBIN 26.9 PG (27.0-31.0); MEAN CORPUSCULAR HGB CONC 31.5 g/dL (33.0-36.5); MEAN CORPUSCULAR VOLUME 85.4 FL (78-98); MEAN PLATELET VOLUME 7.4 FL (7.4-10.4); MONOCYTES # (AUTO) 0.7 X10'3 (0-0.9); MONOCYTES % (AUTO) 4.5 % (2-12); NEUTROPHILS # (AUTO) 15.4 X10'3 (1.8-7.7); NEUTROPHILS % (AUTO) 93.8 % (42-75); PLATELET COUNT 285 X10'3 (140-440); RED BLOOD COUNT 4.24 X10'6 (4.70-6.10); RED CELL DISTRIBUTION WIDTH 18.3 % (11.5-14.5); WHITE BLOOD COUNT 16.4 X10'3 (4.5-11.0)
[2023-06-20] MEDS: ipratropium/albuterol 3ml nebule NEB ONE (08:29)
[2023-06-20] MEDS: CefTRIAXone 2gm/D5W 50ml BAG 50 ML IV ONE (08:49)
[2023-06-20] MEDS: methylPREDNISolone sod succ 125mg/2ml vial IV ONE (08:49)
[2023-06-20 08:50] LABS: ALBUMIN 2.3 G/DL (3.4-5.0); ANION GAP 10 (8-16); BLOOD UREA NITROGEN 44 MG/DL (7-18); BUN/CREATININE RATIO 8.4 (10.0-20.0); CALCIUM 8.9 MG/DL (8.5-10.1); CHLORIDE 96 MMOL/L (99-107); CREATININE 5.25 MG/DL (0.60-1.10); GLUCOSE 151 MG/DL (70-104); POTASSIUM 4.5 MMOL/L (3.5-5.1); SODIUM 130 MMOL/L (135-145); TOTAL CARBON DIOXIDE 23.7 MMOL/L (24-32); eCRCL 14 ML/MIN; eGFR 11 ML/MIN
[2023-06-20 08:52] LABS: PRO BRAIN NATRIURETIC PEPTIDE > 30000 PG/ML (0-125)
[2023-06-20] MEDS ORDERED: LIDOcaine 2% 10ml TOPICAL JELLY (Urojet) TP ONE (09:20)
[2023-06-20 09:36] LABS: ABG BASE EXCESS -2.3 mmol/L (-2.0-2.0); ABG HCO3 23.5 mmol/L (22.0-26.0); ABG OXYGEN SATURATION 80.2 % (94-97); ABG PCO2 (T) 43.8 mmHg (35.0-48.0); ABG PH (T) 7.345 (7.340-7.440); ABG PO2 (T) 43.5 mmHg (75.0-100.0); ALLEN'S TEST POSITIVE; FHHb 19.6 % (0.0-5.0); FLOW 3 L/min; FMetHb 0.1 % (0.0-1.5); FO2Hb 79.3 % (94-97); MODE NASAL CANNULA; PATIENT TEMPERATURE 36.5; TOTAL HEMOGLOBIN 11.3 G/dl (14.0-17.9)
[2023-06-20] MEDS: LidoCAINE 2% Topical Jelly 11mL syringe (UROJET) TOP ONE (09:46)
[2023-06-20] MEDS: furosemide 10 MG/1 ML 10ml inj IV ONE (09:57)
[2023-06-20 10:07] LABS: BILIRUBIN,URINE NEGATIVE (Neg); CLARITY,URINE CLOUDY (Clear); COLOR,URINE YELLOW (Yellow); GLUCOSE, URINE 250 mg/dl (Neg); KETONES,URINE TRACE mg/dl (Neg); LEUKOCYTE ESTERASE ,URINE NEGATIVE (Neg); NITRITES, URINE NEGATIVE (Neg); OCCULT BLOOD,URINE LARGE (Neg); PROTEIN,URINE >=300 mg/dl (Neg); UROBILINOGEN,URINE 0.2 E.U/dL (0.2-1.0)
[2023-06-20 10:11] LABS: UA COLLECTION TYPE FOLEY CATH
[2023-06-20 10:14] LABS: BACTERIA,URINE NONE SEEN /HPF (Neg); HYALINE CASTS 0-3 /LPF (NEGATIVE); MUCUS STRANDS NONE SEEN /LPF (Neg); RBC,URINE TNTC /HPF (0-2); SQUAMOUS EPITHELIAL CELL,UR FEW /LPF (FEW); WBC,URINE 0-4 /HPF (0-4)
[2023-06-20] MEDS ORDERED: albumin (human) 25% 100ml IV 100 ML IV PRN (10:35)
[2023-06-20] MEDS ORDERED: magnesium 4gm in 100ml NS 100 ML IV PRN (10:40)
[2023-06-20] MEDS ORDERED: magnesium Cl slow-release 64mg tablet PO PRN (10:40)
[2023-06-20] MEDS ORDERED: magnesium 2GM in 50ml NS 50 ML IV PRN (10:40)
[2023-06-20] MEDS ORDERED: potassium Cl 40MEQ/1/2NS 520ml 520 ML IV PRN (10:40)
[2023-06-20] MEDS ORDERED: magnesium hydroxide 30ml (MOM) UD suspension PO PRN (10:40)
[2023-06-20] MEDS ORDERED: mag hydrox/Alum hydrox/simeth 30ml oral suspension PO PRN (10:40)
[2023-06-20] MEDS ORDERED: potassium Cl 20 mEq SR tablet PO PRN ×2 (10:40)
[2023-06-20] MEDS: furosemide 10 MG/1 ML 10ml inj IV SCH (10:54)
[2023-06-20] MEDS: piperacillin/tazo 3.375gm/50ml 50 ML IV SCH (11:03)
[2023-06-20] MEDS ORDERED: vancomycin/NS 1 GM ADD-VANTAGE 250 ML IV PRN (12:05)
[2023-06-20] MEDS: hydrALAZINE 20mg/ml inj. IV ONE (12:15)
[2023-06-20 12:27] LABS: POTASSIUM 4.9 MMOL/L (3.5-5.1)
[2023-06-20 12:31] LABS: PRO BRAIN NATRIURETIC PEPTIDE > 30000 PG/ML (0-125)
[2023-06-20] MEDS: heparin 1,000unit/ml 10ml vial 10 ML IV ONE (15:19)
[2023-06-20] MEDS: heparin 1,000 units/ml 10ml inj IV ONE (15:20)
[2023-06-20] MEDS: vancomycin/NS 1 GM ADD-VANTAGE 250 ML X 1 DOSE IV ONE (16:20)
[2023-06-20] MEDS ORDERED: REPA1TAB8 PO (16:36)
[2023-06-20] MEDS ORDERED: MAGN400O6 PO (16:36)
[2023-06-20] MEDS ORDERED: BISA10SU11 RC (16:36)
[2023-06-20] MEDS ORDERED: NA P133E4 RC (16:36)
[2023-06-20] MEDS ORDERED: CARV25TA2 PO (16:36)
[2023-06-20] MEDS ORDERED: BUSP10TA11 PO (16:36)
[2023-06-20] MEDS ORDERED: glucagon, human recombinant 1mg kit SUBCUT PRN (18:20)
[2023-06-20] MEDS ORDERED: insulin Lispro (HumaLOG) vial - multi-dose SQ SCH (18:20)
[2023-06-20] MEDS: MESSAGE TO PHARMACY PO ONE (18:20)
[2023-06-20] MEDS ORDERED: dextrose 50%-water 50ml dispensing syringe IV PRN ×2 (18:20)
[2023-06-20] MEDS ORDERED: DEXTROSE 15 GM of carb/4 tabs (each vial/BOTTLE has 4 tablets) PO PRN ×2 (18:20)
[2023-06-20] MEDS ORDERED: NA PHOS M B RC PRN (18:30)
[2023-06-20] MEDS ORDERED: NA PHOS DI BA RC PRN (18:30)
[2023-06-20] MEDS: K and/or MAG REPLACEMENT MC SCH (20:00)
[2023-06-20] MEDS: carVEDilol 12.5mg tablet PO SCH (20:48)
[2023-06-20] MEDS: docusate sod 100mg capsule PO SCH (20:49)
[2023-06-20] MEDS: hydrALAZINE 25 MG tablet PO SCH (20:49)
[2023-06-20] MEDS: atorvastatin 20mg tablet PO SCH (20:49)
[2023-06-20] MEDS: heparin, porcine 5000 units/ml vial SQ SCH (20:50)
[2023-06-20] MEDS: insulin glargine (Lantus) pen - multi-dose SQ SCH (21:00)
[2023-06-21] VITALS (10 sets, daily range): BP systolic 132–165; BP diastolic 62–78; PULSE 55–75; RESP 16–22; TEMP 97.2–98.2; O2SAT 93–100
[2023-06-21] MEDS ORDERED: sevelamer carbonate 800mg tablet PO SCH
[2023-06-21] MEDS: VANCOMYCIN LEVEL IV SCH (03:00)
[2023-06-21 06:07] LABS: BASOPHILS # (AUTO) 0.1 X10'3 (0-0.2); EOSINOPHILS % (AUTO) 0.1 % (0-6); HEMATOCRIT 32.1 % (42.0-52.0); HEMOGLOBIN 10.3 g/dl (14.0-17.9); LYMPHOCYTES # (AUTO) 0.6 X10'3 (1.1-4.8); LYMPHOCYTES % (AUTO) 8.1 % (21-51); MEAN CORPUSCULAR HEMOGLOBIN 27.3 PG (27.0-31.0); MEAN CORPUSCULAR HGB CONC 32.1 g/dL (33.0-36.5); MEAN CORPUSCULAR VOLUME 85.2 FL (78-98); MONOCYTES # (AUTO) 0.7 X10'3 (0-0.9); MONOCYTES % (AUTO) 8.7 % (2-12); NEUTROPHILS # (AUTO) 6.2 X10'3 (1.8-7.7); NEUTROPHILS % (AUTO) 82.1 % (42-75); PLATELET COUNT 282 X10'3 (140-440); RED BLOOD COUNT 3.77 X10'6 (4.70-6.10); RED CELL DISTRIBUTION WIDTH 18.3 % (11.5-14.5); WHITE BLOOD COUNT 7.6 X10'3 (4.5-11.0)
[2023-06-21 06:15] LABS: APTT 31 SECONDS (22-32); INR 1.1 INR; PROTHROMBIN TIME 11.4 SECONDS (9.0-12.0)
[2023-06-21 06:28] LABS: ALANINE AMINOTRANSFERASE 10 U/L (12-78); ALBUMIN 1.9 G/DL (3.4-5.0); ALBUMIN/GLOBULIN RATIO 0.5 (1.1-1.5); ALKALINE PHOSPHATASE 55 IU/L (46-116); ANION GAP 12 (8-16); ASPARTATE AMINO TRANSFERASE 9 U/L (10-37); BILIRUBIN,TOTAL 0.4 MG/DL (0.1-1.0); BLOOD UREA NITROGEN 38 MG/DL (7-18); CALCIUM 8.5 MG/DL (8.5-10.1); CHLORIDE 100 MMOL/L (99-107); CREATININE 4.21 MG/DL (0.60-1.10); GLUCOSE 123 MG/DL (70-104); MAGNESIUM 2.2 MG/DL (1.5-2.4); POTASSIUM 4.7 MMOL/L (3.5-5.1); SODIUM 135 MMOL/L (135-145); TOTAL CARBON DIOXIDE 23.5 MMOL/L (24-32); VANCOMYCIN,RANDOM 3.2 ug/mL (20.0-30.0); eCRCL 17 ML/MIN; eGFR 14 ML/MIN
[2023-06-21] MEDS: losartan 25mg tablet PO SCH (09:14)
[2023-06-21] MEDS: sevelamer carbonate 800mg tablet PO SCH (09:14)
[2023-06-21] MEDS: levoTHYROXINE 88mcg tablet PO SCH (09:14)
[2023-06-21] MEDS: sertraline 50mg tablet PO SCH (09:15)
[2023-06-21] MEDS: busPIRone 5mg tablet PO SCH (09:15)
[2023-06-21] MEDS: amLODIPine 5mg tablet PO SCH (09:15)
[2023-06-21] MEDS: aspirin 81mg, enteric-coated 1 TAB TABLET.DR PO SCH (09:15)
[2023-06-21 13:53] LABS: C DIFF ANTIGEN POSITIVE (NEGATIVE); C DIFF SPECIMEN=DIARRHEA? ACCEPTABLE; C DIFFICILE TOXINS A&B POSITIVE (Neg)
[2023-06-21] MEDS: metroNIDAZOLE-Flagyl 500mg/NS 100 ML IV SCH (16:00)
[2023-06-21] MEDS: vancomycin inj 500 MG in normal saline 100ml IV soln 100 ML IV SCH (16:00)
[2023-06-21] MEDS: VANCOMYCIN 125 MG/5 ML oral SOLN.RECON 5mL UD syringe (FIRVANQ) PO SCH (20:00)
[2023-06-22] VITALS (16 sets, daily range): BP systolic 142–185; BP diastolic 60–89; PULSE 59–78; RESP 16–22; TEMP 97.5–98.7; O2SAT 4–100
[2023-06-22] MEDS: piperacillin/tazo 3.375gm/50ml 50 ML IV SCH (00:55)
[2023-06-22] MEDS: guaiFENesin ER 600mg tablet PO SCH (01:02)
[2023-06-22] MEDS: LIDOcaine 1% (10mg/ml) 2ml vial SQ ONE (08:10)
[2023-06-22] MEDS ORDERED: normal saline 1000ml 250 ML IV PRN (08:10)
[2023-06-22 08:18] LABS: ALANINE AMINOTRANSFERASE 9 U/L (12-78); ALBUMIN 1.8 G/DL (3.4-5.0); ALBUMIN/GLOBULIN RATIO 0.5 (1.1-1.5); ALKALINE PHOSPHATASE 57 IU/L (46-116); ANION GAP 10 (8-16); ASPARTATE AMINO TRANSFERASE 25 U/L (10-37); BILIRUBIN,TOTAL 0.5 MG/DL (0.1-1.0); BLOOD UREA NITROGEN 50 MG/DL (7-18); BUN/CREATININE RATIO 9.6 (10.0-20.0); CALCIUM 7.8 MG/DL (8.5-10.1); CHLORIDE 96 MMOL/L (99-107); CREATININE 5.23 MG/DL (0.60-1.10); GLUCOSE 125 MG/DL (70-104); MAGNESIUM 2.1 MG/DL (1.5-2.4); PHOSPHORUS 4.1 MG/DL (2.3-4.5); POTASSIUM 5.2 MMOL/L (3.5-5.1); SODIUM 130 MMOL/L (135-145); TOTAL CARBON DIOXIDE 23.8 MMOL/L (24-32); TOTAL PROTEIN 5.8 G/DL (6.4-8.2); eCRCL 14 ML/MIN; eGFR 11 ML/MIN
[2023-06-22] MEDS: heparin 1,000 units/ml 10ml inj IV ONE (11:07)
[2023-06-22] MEDS: acetaminophen 325mg tablet PO PRN (13:54)
[2023-06-22] MEDS: VANCOMYCIN 125 MG/5 ML oral SOLN.RECON 5mL UD syringe (FIRVANQ) PO SCH (14:00)
[2023-06-22 15:11] LABS: BASOPHILS % (AUTO) 0.5 % (0-1); EOSINOPHILS % (AUTO) 0.3 % (0-6); HEMATOCRIT 33.5 % (42.0-52.0); HEMOGLOBIN 10.8 g/dl (14.0-17.9); LYMPHOCYTES # (AUTO) 0.3 X10'3 (1.1-4.8); LYMPHOCYTES % (AUTO) 5.4 % (21-51); MEAN CORPUSCULAR HEMOGLOBIN 27.6 PG (27.0-31.0); MEAN CORPUSCULAR HGB CONC 32.4 g/dL (33.0-36.5); MEAN CORPUSCULAR VOLUME 85.3 FL (78-98); MEAN PLATELET VOLUME 7.3 FL (7.4-10.4); MONOCYTES # (AUTO) 0.5 X10'3 (0-0.9); MONOCYTES % (AUTO) 8.5 % (2-12); NEUTROPHILS # (AUTO) 5.4 X10'3 (1.8-7.7); NEUTROPHILS % (AUTO) 85.3 % (42-75); PLATELET COUNT 248 X10'3 (140-440); RED BLOOD COUNT 3.92 X10'6 (4.70-6.10); RED CELL DISTRIBUTION WIDTH 18.1 % (11.5-14.5); WHITE BLOOD COUNT 6.4 X10'3 (4.5-11.0)
[2023-06-22 15:26] LABS: APTT 28 SECONDS (22-32); PROTHROMBIN TIME 10.9 SECONDS (9.0-12.0)
[2023-06-23] VITALS (7 sets, daily range): BP systolic 152–193; BP diastolic 57–80; PULSE 62–75; RESP 13–20; TEMP 97.6–98.2; O2SAT 97–99
[2023-06-23 07:18] LABS: BASOPHILS % (AUTO) 0.4 % (0-1); EOSINOPHILS % (AUTO) 0.3 % (0-6); HEMATOCRIT 33.7 % (42.0-52.0); HEMOGLOBIN 10.8 g/dl (14.0-17.9); LYMPHOCYTES # (AUTO) 0.4 X10'3 (1.1-4.8); LYMPHOCYTES % (AUTO) 5.8 % (21-51); MEAN CORPUSCULAR HEMOGLOBIN 27.5 PG (27.0-31.0); MEAN CORPUSCULAR HGB CONC 32.1 g/dL (33.0-36.5); MEAN CORPUSCULAR VOLUME 85.7 FL (78-98); MEAN PLATELET VOLUME 7.4 FL (7.4-10.4); MONOCYTES # (AUTO) 0.7 X10'3 (0-0.9); MONOCYTES % (AUTO) 10.5 % (2-12); NEUTROPHILS # (AUTO) 5.5 X10'3 (1.8-7.7); PLATELET COUNT 203 X10'3 (140-440); RED BLOOD COUNT 3.93 X10'6 (4.70-6.10); RED CELL DISTRIBUTION WIDTH 18.5 % (11.5-14.5); WHITE BLOOD COUNT 6.6 X10'3 (4.5-11.0)
[2023-06-23 07:24] LABS: APTT 29 SECONDS (22-32); INR 1.1 INR; PROTHROMBIN TIME 11.4 SECONDS (9.0-12.0)
[2023-06-23 11:10] LABS: ALANINE AMINOTRANSFERASE 9 U/L (12-78); ALBUMIN 1.9 G/DL (3.4-5.0); ALBUMIN/GLOBULIN RATIO 0.5 (1.1-1.5); ALKALINE PHOSPHATASE 48 IU/L (46-116); ANION GAP 9 (8-16); ASPARTATE AMINO TRANSFERASE 7 U/L (10-37); BILIRUBIN,TOTAL 0.5 MG/DL (0.1-1.0); BLOOD UREA NITROGEN 34 MG/DL (7-18); BUN/CREATININE RATIO 7.8 (10.0-20.0); CALCIUM 8.1 MG/DL (8.5-10.1); CHLORIDE 98 MMOL/L (99-107); CREATININE 4.35 MG/DL (0.60-1.10); GLUCOSE 150 MG/DL (70-104); MAGNESIUM 2.1 MG/DL (1.5-2.4); PHOSPHORUS 3.7 MG/DL (2.3-4.5); POTASSIUM 4.4 MMOL/L (3.5-5.1); SODIUM 131 MMOL/L (135-145); TOTAL CARBON DIOXIDE 24.4 MMOL/L (24-32); TOTAL PROTEIN 5.9 G/DL (6.4-8.2); eCRCL 17 ML/MIN; eGFR 14 ML/MIN
[2023-06-24] VITALS (15 sets, daily range): BP systolic 126–194; BP diastolic 54–70; PULSE 57–70; RESP 12–22; TEMP 97.6–98.8; O2SAT 94–100
[2023-06-24 07:29] LABS: BASOPHILS # (AUTO) 0.1 X10'3 (0-0.2); BASOPHILS % (AUTO) 1.1 % (0-1); EOSINOPHILS % (AUTO) 0.5 % (0-6); HEMATOCRIT 33.4 % (42.0-52.0); HEMOGLOBIN 10.6 g/dl (14.0-17.9); LYMPHOCYTES # (AUTO) 0.6 X10'3 (1.1-4.8); LYMPHOCYTES % (AUTO) 7.9 % (21-51); MEAN CORPUSCULAR HEMOGLOBIN 27.3 PG (27.0-31.0); MEAN CORPUSCULAR HGB CONC 31.8 g/dL (33.0-36.5); MEAN CORPUSCULAR VOLUME 85.8 FL (78-98); MEAN PLATELET VOLUME 7.7 FL (7.4-10.4); MONOCYTES # (AUTO) 0.9 X10'3 (0-0.9); MONOCYTES % (AUTO) 11.6 % (2-12); NEUTROPHILS # (AUTO) 6.2 X10'3 (1.8-7.7); NEUTROPHILS % (AUTO) 78.9 % (42-75); PLATELET COUNT 216 X10'3 (140-440); RED BLOOD COUNT 3.89 X10'6 (4.70-6.10); RED CELL DISTRIBUTION WIDTH 18.7 % (11.5-14.5); WHITE BLOOD COUNT 7.9 X10'3 (4.5-11.0)
[2023-06-24] MEDS ORDERED: normal saline 1000ml 250 ML IV PRN (07:45)
[2023-06-24] MEDS: LIDOcaine 1% (10mg/ml) 2ml vial SQ ONE (07:45)
[2023-06-24 07:46] LABS: PLATELET ESTIMATE NORMAL; POIKILOCYTOSIS 1+
[2023-06-24 07:47] LABS: ACANTHOCYTES FEW; ANISOCYTOSIS 2+; BURR CELLS 1+; ELLIPTOCYTES FEW; SCHISTOCYTES FEW; TEAR DROP CELLS FEW
[2023-06-24 07:50] LABS: ALANINE AMINOTRANSFERASE 6 U/L (12-78); ALBUMIN 1.7 G/DL (3.4-5.0); ALBUMIN/GLOBULIN RATIO 0.4 (1.1-1.5); ALKALINE PHOSPHATASE 55 IU/L (46-116); ANION GAP 10 (8-16); ASPARTATE AMINO TRANSFERASE 19 U/L (10-37); BILIRUBIN,TOTAL 0.7 MG/DL (0.1-1.0); BLOOD UREA NITROGEN 36 MG/DL (7-18); BUN/CREATININE RATIO 6.9 (10.0-20.0); CALCIUM 7.7 MG/DL (8.5-10.1); CHLORIDE 94 MMOL/L (99-107); CREATININE 5.18 MG/DL (0.60-1.10); GLUCOSE 101 MG/DL (70-104); MAGNESIUM 2.2 MG/DL (1.5-2.4); PHOSPHORUS 4.5 MG/DL (2.3-4.5); SODIUM 124 MMOL/L (135-145); TOTAL CARBON DIOXIDE 20.1 MMOL/L (24-32); TOTAL PROTEIN 5.9 G/DL (6.4-8.2); eCRCL 14 ML/MIN; eGFR 11 ML/MIN
[2023-06-24 07:55] LABS: POTASSIUM 4.9 MMOL/L (3.5-5.1)
[2023-06-24 08:27] LABS: INR 1.1 INR; PROTHROMBIN TIME 11.2 SECONDS (9.0-12.0)
[2023-06-24] MEDS: heparin 1,000 units/ml 10ml inj IV ONE (10:15)
[2023-06-24] MEDS: morphine 2 MG/ML inj. syringe IV PRN (21:25)
[2023-06-25] VITALS (8 sets, daily range): BP systolic 140–165; BP diastolic 55–78; PULSE 61–80; RESP 12–20; TEMP 97.4–98.2; O2SAT 94–98
[2023-06-25 07:43] LABS: BASOPHILS # (AUTO) 0.1 X10'3 (0-0.2); BASOPHILS % (AUTO) 0.7 % (0-1); EOSINOPHILS % (AUTO) 0.2 % (0-6); HEMATOCRIT 33.4 % (42.0-52.0); HEMOGLOBIN 10.5 g/dl (14.0-17.9); LYMPHOCYTES # (AUTO) 0.5 X10'3 (1.1-4.8); LYMPHOCYTES % (AUTO) 6.1 % (21-51); MEAN CORPUSCULAR HEMOGLOBIN 26.8 PG (27.0-31.0); MEAN CORPUSCULAR HGB CONC 31.6 g/dL (33.0-36.5); MEAN CORPUSCULAR VOLUME 84.9 FL (78-98); MEAN PLATELET VOLUME 7.8 FL (7.4-10.4); MONOCYTES # (AUTO) 0.8 X10'3 (0-0.9); MONOCYTES % (AUTO) 9.9 % (2-12); NEUTROPHILS # (AUTO) 6.9 X10'3 (1.8-7.7); NEUTROPHILS % (AUTO) 83.1 % (42-75); PLATELET COUNT 245 X10'3 (140-440); RED BLOOD COUNT 3.93 X10'6 (4.70-6.10); RED CELL DISTRIBUTION WIDTH 18.2 % (11.5-14.5); WHITE BLOOD COUNT 8.3 X10'3 (4.5-11.0)
[2023-06-25 07:54] LABS: INR 1.1 INR; PROTHROMBIN TIME 11.4 SECONDS (9.0-12.0)
[2023-06-25 08:12] LABS: ALBUMIN 1.9 G/DL (3.4-5.0); ALBUMIN/GLOBULIN RATIO 0.5 (1.1-1.5); ALKALINE PHOSPHATASE 57 IU/L (46-116); ANION GAP 7 (8-16); ASPARTATE AMINO TRANSFERASE 8 U/L (10-37); BILIRUBIN,TOTAL 0.6 MG/DL (0.1-1.0); BLOOD UREA NITROGEN 20 MG/DL (7-18); BUN/CREATININE RATIO 5.3 (10.0-20.0); CHLORIDE 95 MMOL/L (99-107); CREATININE 3.77 MG/DL (0.60-1.10); GLUCOSE 99 MG/DL (70-104); MAGNESIUM 1.8 MG/DL (1.5-2.4); PHOSPHORUS 4.2 MG/DL (2.3-4.5); POTASSIUM 4.2 MMOL/L (3.5-5.1); SODIUM 129 MMOL/L (135-145); TOTAL PROTEIN 5.8 G/DL (6.4-8.2); eCRCL 19 ML/MIN; eGFR 16 ML/MIN
[2023-06-25 08:13] LABS: ALANINE AMINOTRANSFERASE < 6 U/L (12-78)
[2023-06-25] MEDS: NUT.TX.IMP.RENAL FXN,LAC-REDUC (Nepro) 237 ML VANILLA PO SCH (13:00)
[2023-06-26] VITALS (14 sets, daily range): BP systolic 140–196; BP diastolic 59–77; PULSE 64–79; RESP 14–24; TEMP 97.4–100.6; O2SAT 93–99
[2023-06-26] MEDS ORDERED: normal saline 1000ml 250 ML IV PRN (08:15)
[2023-06-26] MEDS ORDERED: heparin 1,000unit/ml 10ml vial 10 ML IV ONE (08:15)
[2023-06-26] MEDS: heparin 1,000 units/ml 10ml inj IV ONE (09:48)
[2023-06-26 11:39] LABS: BASOPHILS # (AUTO) 0.1 X10'3 (0-0.2); BASOPHILS % (AUTO) 0.5 % (0-1); EOSINOPHILS % (AUTO) 0.3 % (0-6); HEMATOCRIT 34.1 % (42.0-52.0); LYMPHOCYTES # (AUTO) 0.4 X10'3 (1.1-4.8); LYMPHOCYTES % (AUTO) 3.8 % (21-51); MEAN CORPUSCULAR HEMOGLOBIN 27.1 PG (27.0-31.0); MEAN CORPUSCULAR HGB CONC 32.3 g/dL (33.0-36.5); MEAN CORPUSCULAR VOLUME 83.8 FL (78-98); MEAN PLATELET VOLUME 8.2 FL (7.4-10.4); MONOCYTES # (AUTO) 0.7 X10'3 (0-0.9); NEUTROPHILS # (AUTO) 9.1 X10'3 (1.8-7.7); NEUTROPHILS % (AUTO) 88.4 % (42-75); PLATELET COUNT 250 X10'3 (140-440); RED BLOOD COUNT 4.07 X10'6 (4.70-6.10); RED CELL DISTRIBUTION WIDTH 17.8 % (11.5-14.5); WHITE BLOOD COUNT 10.3 X10'3 (4.5-11.0)
[2023-06-26 11:56] LABS: ALBUMIN 1.9 G/DL (3.4-5.0); ALBUMIN/GLOBULIN RATIO 0.5 (1.1-1.5); ALKALINE PHOSPHATASE 57 IU/L (46-116); ANION GAP 7 (8-16); ASPARTATE AMINO TRANSFERASE 11 U/L (10-37); BILIRUBIN,TOTAL 0.5 MG/DL (0.1-1.0); BLOOD UREA NITROGEN 13 MG/DL (7-18); BUN/CREATININE RATIO 4.8 (10.0-20.0); CALCIUM 7.9 MG/DL (8.5-10.1); CHLORIDE 97 MMOL/L (99-107); CREATININE 2.73 MG/DL (0.60-1.10); GLUCOSE 138 MG/DL (70-104); POTASSIUM 3.6 MMOL/L (3.5-5.1); SODIUM 131 MMOL/L (135-145); TOTAL CARBON DIOXIDE 26.7 MMOL/L (24-32); TOTAL PROTEIN 5.8 G/DL (6.4-8.2); eCRCL 27 ML/MIN; eGFR 23 ML/MIN
[2023-06-26 12:06] LABS: ALANINE AMINOTRANSFERASE < 6 U/L (12-78)
[2023-06-26 14:45] LABS: HBSAG SCREEN Negative (Negative)
[2023-06-26] MEDS ORDERED: hydrALAZINE 20mg/ml inj. IV PRN (17:45)
[2023-06-27 02:00] VITALS: BP 135/57; PULSE 61; RESP 13; TEMP 96.7; O2SAT 97
[2023-06-27 07:30] VITALS: BP 169/69; PULSE 60; RESP 30; TEMP 98.2; O2SAT 96
[2023-06-27 08:43] VITALS: RESP 16
[2023-06-27 09:01] LABS: BASOPHILS % (AUTO) 0.5 % (0-1); EOSINOPHILS % (AUTO) 0.4 % (0-6); HEMATOCRIT 37.1 % (42.0-52.0); LYMPHOCYTES # (AUTO) 0.7 X10'3 (1.1-4.8); LYMPHOCYTES % (AUTO) 7.8 % (21-51); MEAN CORPUSCULAR HEMOGLOBIN 27.5 PG (27.0-31.0); MEAN CORPUSCULAR HGB CONC 32.4 g/dL (33.0-36.5); MEAN CORPUSCULAR VOLUME 84.9 FL (78-98); MEAN PLATELET VOLUME 7.5 FL (7.4-10.4); MONOCYTES # (AUTO) 1.1 X10'3 (0-0.9); MONOCYTES % (AUTO) 12.4 % (2-12); NEUTROPHILS % (AUTO) 78.9 % (42-75); PLATELET COUNT 229 X10'3 (140-440); RED BLOOD COUNT 4.37 X10'6 (4.70-6.10); RED CELL DISTRIBUTION WIDTH 18.5 % (11.5-14.5); WHITE BLOOD COUNT 8.8 X10'3 (4.5-11.0)
[2023-06-27 09:20] LABS: ALANINE AMINOTRANSFERASE 9 U/L (12-78); ALBUMIN 1.8 G/DL (3.4-5.0); ALBUMIN/GLOBULIN RATIO 0.4 (1.1-1.5); ALKALINE PHOSPHATASE 61 IU/L (46-116); ANION GAP 6 (8-16); ASPARTATE AMINO TRANSFERASE 10 U/L (10-37); BILIRUBIN,TOTAL 0.5 MG/DL (0.1-1.0); BLOOD UREA NITROGEN 18 MG/DL (7-18); BUN/CREATININE RATIO 4.5 (10.0-20.0); CALCIUM 8.4 MG/DL (8.5-10.1); CHLORIDE 96 MMOL/L (99-107); CREATININE 4.02 MG/DL (0.60-1.10); GLUCOSE 148 MG/DL (70-104); POTASSIUM 3.9 MMOL/L (3.5-5.1); SODIUM 129 MMOL/L (135-145); TOTAL CARBON DIOXIDE 27.5 MMOL/L (24-32); eCRCL 18 ML/MIN; eGFR 15 ML/MIN
[2023-06-27 11:02] VITALS: BP 128/53; PULSE 57; RESP 17; TEMP 97.2; O2SAT 96
[2023-06-27 15:04] VITALS: BP 140/54; PULSE 60; RESP 18; TEMP 97.9; O2SAT 98
[2023-06-27 20:00] VITALS: BP 160/65; PULSE 68; RESP 16; O2SAT 95
[2023-06-28] VITALS (8 sets, daily range): BP systolic 114–165; BP diastolic 54–70; PULSE 65–75; RESP 16–28; TEMP 97.7–98.9; O2SAT 94–97
[2023-06-28 07:10] LABS: ALANINE AMINOTRANSFERASE 7 U/L (12-78); ALBUMIN 1.8 G/DL (3.4-5.0); ALBUMIN/GLOBULIN RATIO 0.5 (1.1-1.5); ALKALINE PHOSPHATASE 58 IU/L (46-116); ANION GAP 6 (8-16); ASPARTATE AMINO TRANSFERASE 8 U/L (10-37); BILIRUBIN,TOTAL 0.6 MG/DL (0.1-1.0); BLOOD UREA NITROGEN 26 MG/DL (7-18); BUN/CREATININE RATIO 5.2 (10.0-20.0); CALCIUM 8.1 MG/DL (8.5-10.1); CHLORIDE 93 MMOL/L (99-107); CREATININE 5.02 MG/DL (0.60-1.10); GLUCOSE 117 MG/DL (70-104); POTASSIUM 4.2 MMOL/L (3.5-5.1); SODIUM 126 MMOL/L (135-145); TOTAL CARBON DIOXIDE 26.7 MMOL/L (24-32); TOTAL PROTEIN 5.8 G/DL (6.4-8.2); eCRCL 14 ML/MIN; eGFR 12 ML/MIN
[2023-06-28 07:11] LABS: BASOPHILS # (AUTO) 0.4 X10'3 (0-0.2); BASOPHILS % (AUTO) 3.9 % (0-1); EOSINOPHILS # (AUTO) 0.1 X10'3 (0-0.9); EOSINOPHILS % (AUTO) 0.7 % (0-6); HEMATOCRIT 31.7 % (42.0-52.0); HEMOGLOBIN 10.3 g/dl (14.0-17.9); LYMPHOCYTES # (AUTO) 0.6 X10'3 (1.1-4.8); LYMPHOCYTES % (AUTO) 6.9 % (21-51); MEAN CORPUSCULAR HEMOGLOBIN 27.3 PG (27.0-31.0); MEAN CORPUSCULAR HGB CONC 32.5 g/dL (33.0-36.5); MEAN CORPUSCULAR VOLUME 83.9 FL (78-98); MEAN PLATELET VOLUME 8.1 FL (7.4-10.4); MONOCYTES # (AUTO) 0.8 X10'3 (0-0.9); MONOCYTES % (AUTO) 8.6 % (2-12); NEUTROPHILS # (AUTO) 7.5 X10'3 (1.8-7.7); NEUTROPHILS % (AUTO) 79.9 % (42-75); PLATELET COUNT 250 X10'3 (140-440); RED BLOOD COUNT 3.77 X10'6 (4.70-6.10); RED CELL DISTRIBUTION WIDTH 18.3 % (11.5-14.5); WHITE BLOOD COUNT 9.4 X10'3 (4.5-11.0)
[2023-06-29] VITALS (15 sets, daily range): BP systolic 118–173; BP diastolic 45–67; PULSE 60–74; RESP 15–19; TEMP 97.5–98.5; O2SAT 91–98
[2023-06-29] MEDS ORDERED: normal saline 1000ml 250 ML IV PRN (07:40)
[2023-06-29 07:56] LABS: BASOPHILS # (AUTO) 0.1 X10'3 (0-0.2); BASOPHILS % (AUTO) 1.4 % (0-1); EOSINOPHILS % (AUTO) 0.5 % (0-6); HEMATOCRIT 32.2 % (42.0-52.0); HEMOGLOBIN 10.4 g/dl (14.0-17.9); LYMPHOCYTES # (AUTO) 0.6 X10'3 (1.1-4.8); LYMPHOCYTES % (AUTO) 5.8 % (21-51); MEAN CORPUSCULAR HGB CONC 32.3 g/dL (33.0-36.5); MEAN CORPUSCULAR VOLUME 83.7 FL (78-98); MEAN PLATELET VOLUME 8.2 FL (7.4-10.4); MONOCYTES # (AUTO) 0.6 X10'3 (0-0.9); MONOCYTES % (AUTO) 5.6 % (2-12); NEUTROPHILS # (AUTO) 8.6 X10'3 (1.8-7.7); NEUTROPHILS % (AUTO) 86.7 % (42-75); PLATELET COUNT 309 X10'3 (140-440); RED BLOOD COUNT 3.85 X10'6 (4.70-6.10); RED CELL DISTRIBUTION WIDTH 18.4 % (11.5-14.5); WHITE BLOOD COUNT 9.9 X10'3 (4.5-11.0)
[2023-06-29 08:19] LABS: ALANINE AMINOTRANSFERASE 10 U/L (12-78); ALBUMIN 1.8 G/DL (3.4-5.0); ALBUMIN/GLOBULIN RATIO 0.4 (1.1-1.5); ALKALINE PHOSPHATASE 64 IU/L (46-116); ANION GAP 5 (8-16); ASPARTATE AMINO TRANSFERASE 2 U/L (10-37); BILIRUBIN,TOTAL 0.8 MG/DL (0.1-1.0); BLOOD UREA NITROGEN 35 MG/DL (7-18); BUN/CREATININE RATIO 5.7 (10.0-20.0); CALCIUM 8.6 MG/DL (8.5-10.1); CHLORIDE 94 MMOL/L (99-107); CREATININE 6.14 MG/DL (0.60-1.10); GLUCOSE 108 MG/DL (70-104); POTASSIUM 4.5 MMOL/L (3.5-5.1); SODIUM 126 MMOL/L (135-145); TOTAL CARBON DIOXIDE 27.1 MMOL/L (24-32); TOTAL PROTEIN 6.1 G/DL (6.4-8.2); eCRCL 12 ML/MIN; eGFR 9 ML/MIN
[2023-06-29] MEDS: heparin 1,000 units/ml 10ml inj IV ONE (17:22)
[2023-06-29] MEDS: LIDOcaine 1% (10mg/ml) 2ml vial SQ ONE (17:23)
[2023-06-30] VITALS (7 sets, daily range): BP systolic 133–171; BP diastolic 54–66; PULSE 63–74; RESP 14–28; TEMP 98.3–100.5; O2SAT 94–96
[2023-06-30 08:31] LABS: BASOPHILS # (AUTO) 0.1 X10'3 (0-0.2); BASOPHILS % (AUTO) 0.9 % (0-1); EOSINOPHILS % (AUTO) 0.4 % (0-6); HEMATOCRIT 31.6 % (42.0-52.0); HEMOGLOBIN 10.4 g/dl (14.0-17.9); LYMPHOCYTES # (AUTO) 0.5 X10'3 (1.1-4.8); LYMPHOCYTES % (AUTO) 5.2 % (21-51); MEAN CORPUSCULAR HEMOGLOBIN 27.5 PG (27.0-31.0); MEAN CORPUSCULAR HGB CONC 32.8 g/dL (33.0-36.5); MEAN CORPUSCULAR VOLUME 83.7 FL (78-98); MEAN PLATELET VOLUME 8.5 FL (7.4-10.4); NEUTROPHILS # (AUTO) 7.4 X10'3 (1.8-7.7); NEUTROPHILS % (AUTO) 82.5 % (42-75); PLATELET COUNT 348 X10'3 (140-440); RED BLOOD COUNT 3.77 X10'6 (4.70-6.10); RED CELL DISTRIBUTION WIDTH 18.5 % (11.5-14.5); WHITE BLOOD COUNT 8.9 X10'3 (4.5-11.0)
[2023-06-30 09:20] LABS: ALANINE AMINOTRANSFERASE 14 U/L (12-78); ALBUMIN 1.8 G/DL (3.4-5.0); ALBUMIN/GLOBULIN RATIO 0.4 (1.1-1.5); ALKALINE PHOSPHATASE 68 IU/L (46-116); ANION GAP 6 (8-16); ASPARTATE AMINO TRANSFERASE 13 U/L (10-37); BILIRUBIN,TOTAL 0.6 MG/DL (0.1-1.0); BLOOD UREA NITROGEN 19 MG/DL (7-18); BUN/CREATININE RATIO 4.6 (10.0-20.0); CALCIUM 8.8 MG/DL (8.5-10.1); CHLORIDE 97 MMOL/L (99-107); CREATININE 4.17 MG/DL (0.60-1.10); GLUCOSE 109 MG/DL (70-104); POTASSIUM 4.3 MMOL/L (3.5-5.1); SODIUM 133 MMOL/L (135-145); TOTAL CARBON DIOXIDE 30.5 MMOL/L (24-32); TOTAL PROTEIN 6.3 G/DL (6.4-8.2); eCRCL 17 ML/MIN; eGFR 14 ML/MIN
[2023-07-01] VITALS (11 sets, daily range): BP systolic 110–163; BP diastolic 47–64; PULSE 57–67; RESP 12–18; TEMP 98.2–98.8; O2SAT 95–98
[2023-07-01] MEDS ORDERED: normal saline 1000ml 250 ML IV PRN (06:25)
[2023-07-01] MEDS ORDERED: LIDOcaine 1% (10mg/ml) 2ml vial SQ ONE (06:25)
[2023-07-01] MEDS: heparin 1,000 units/ml 10ml inj IV ONE (09:10)
[2023-07-01 09:15] LABS: HEMATOCRIT 31.2 % (42.0-52.0); HEMOGLOBIN 10.1 g/dl (14.0-17.9); MEAN CORPUSCULAR HEMOGLOBIN 27.2 PG (27.0-31.0); MEAN CORPUSCULAR HGB CONC 32.2 g/dL (33.0-36.5); MEAN CORPUSCULAR VOLUME 84.3 FL (78-98); MEAN PLATELET VOLUME 8.3 FL (7.4-10.4); PLATELET COUNT 357 X10'3 (140-440); RED CELL DISTRIBUTION WIDTH 18.1 % (11.5-14.5); WHITE BLOOD COUNT 10.1 X10'3 (4.5-11.0)
[2023-07-01 09:51] LABS: ALANINE AMINOTRANSFERASE 19 U/L (12-78); ALBUMIN 1.8 G/DL (3.4-5.0); ALBUMIN/GLOBULIN RATIO 0.4 (1.1-1.5); ALKALINE PHOSPHATASE 62 IU/L (46-116); ANION GAP 7 (8-16); ASPARTATE AMINO TRANSFERASE 18 U/L (10-37); BILIRUBIN,TOTAL 0.6 MG/DL (0.1-1.0); BLOOD UREA NITROGEN 18 MG/DL (7-18); BUN/CREATININE RATIO 4.7 (10.0-20.0); CALCIUM 8.6 MG/DL (8.5-10.1); CHLORIDE 98 MMOL/L (99-107); CREATININE 3.79 MG/DL (0.60-1.10); GLUCOSE 118 MG/DL (70-104); SODIUM 133 MMOL/L (135-145); TOTAL CARBON DIOXIDE 27.8 MMOL/L (24-32); TOTAL PROTEIN 6.2 G/DL (6.4-8.2); eCRCL 19 ML/MIN; eGFR 16 ML/MIN
[2023-07-01] MEDS: EPOETIN ALFA-EPBX 20,000 UNIT/ML 1 ML MDV IV ONE (11:26)
[2023-07-01] MEDS ORDERED: GUAI600T45 PO (12:08)
== END 2023-07-01 14:46 | disposition home health service (06) | DRG 871 ==
LOC: ER 07:38 → ED HOLD 10:42 → PCU 3S 12:45
PROVIDERS: ADMIT Family Medicine; ATTEND Family Medicine
PROC: 5A1D70Z Performance of Urinary Filtration, Intermittent, Less than 6 Hours Per Day (ICD-10-PCS; principal; 2023-06-20)
PROC: 5A1D70Z Performance of Urinary Filtration, Intermittent, Less than 6 Hours Per Day (ICD-10-PCS; 2023-06-22)
PROC: 5A1D70Z Performance of Urinary Filtration, Intermittent, Less than 6 Hours Per Day (ICD-10-PCS; 2023-06-24)
PROC: 5A1D70Z Performance of Urinary Filtration, Intermittent, Less than 6 Hours Per Day (ICD-10-PCS; 2023-06-26)
PROC: 5A1D70Z Performance of Urinary Filtration, Intermittent, Less than 6 Hours Per Day (ICD-10-PCS; 2023-06-29)
PROC: 5A1D70Z Performance of Urinary Filtration, Intermittent, Less than 6 Hours Per Day (ICD-10-PCS; 2023-07-01)
DX: A41.89 Other specified sepsis (principal); G93.41 Metabolic encephalopathy; J69.0 Pneumonitis due to inhalation of food and vomit; N18.6 End stage renal disease; J96.21 Acute and chronic respiratory failure with hypoxia; I50.33 Acute on chronic diastolic (congestive) heart failure; A04.72 Enterocolitis due to Clostridium difficile, not specified as recurrent; Q21.12 Patent foramen ovale; I13.2 Hypertensive heart and chronic kidney disease with heart failure and with stage 5 chronic kidney disease, or end stage renal disease; Z66 Do not resuscitate; D63.8 Anemia in other chronic diseases classified elsewhere; I25.10 Atherosclerotic heart disease of native coronary artery without angina pectoris; E11.22 Type 2 diabetes mellitus with diabetic chronic kidney disease; Z99.2 Dependence on renal dialysis; Z79.82 Long term (current) use of aspirin; Z79.899 Other long term (current) drug therapy; I25.2 Old myocardial infarction; Z88.8 Allergy status to other drugs, medicaments and biological substances
CPT/HCPCS: 36415; 36600; 71045; 80048; 80053; 80202; 81001; 82803; 82948; 83036; 83605; 83735; 83880; 84100; 84132; 84484; 85008; 85018; 85025; 85027; 85610; 85730; 87040; 87077; 87081; 87324; 87340; 87449; 92508; 92616; 93005; 93306; 94640; 94660; 94760; 97161; 97530; 97535; 99285; A6212; A6213; A6222; A6223; A6446; A6449; A6590; C1758; E1594; G0257; G0378; J0456; J0696; J1644; J1815; J1940; J2270; J2543; J2930; J3370; J3490; J7030; J7040; Q4081